=== PATIENT | male | born 1980 | race Caucasian/White ===

== ENCOUNTER 2017-01-22 20:44 | Emergency (ER) | payer SELFPAY ==
[~2017-01-22] VITALS: Ht 185.4 cm; Wt 89.0 kg
[2017-01-22 20:47] VITALS: BP 155/99; PULSE 97; RESP 15; TEMP 98.1; O2SAT 99
[2017-01-22 20:58] VITALS: BP 128/84; PULSE 93; RESP 18; O2SAT 99
[2017-01-22] MEDS ORDERED: KETOROLAC TROMETHAMINE 60 MG/2 ML (IM) VIAL IM ONE (21:00)
[2017-01-22] MEDS ORDERED: DEXAMETHASONE SOD PHOS 20 MG/5 ML VIAL IM ONE (21:00)
[2017-01-22] MEDS ORDERED: ORPHENADRINE INJ 60 MG/2 ML AMP IM ONE (21:00)
--- NOTE | 2017-01-22 21:22 | PD ---
HPI Chief Complaint: Back/ Neck Pain or Injury Time Seen by Provider: 20:57 Travel History International Travel<30 days: No Contact w/Intl Traveler<30days: No Traveled to known affect area: No History of Present Illness HPI Patient is a 36-year-old male presenting to emergency for evaluation of low back pain. Patient states he was moving heavy furniture all day, when he was finished he began to experience back pain that radiates across his lower back. Patient states the pain is an 8 out of 10, he reports it as tight and cramping. He denies any weakness in his lower extremities, no bladder or bowel incontinence, saddle paresthesia. Patient has not taken any medications to alleviate the pain. [facility] Past Medical History Medical History: Denies Significant Hx Tetanus Vaccination: > 5 Years Past Surgical History Surgical History: No Previous Surgery Social History Alcohol Use: No Tobacco Use: No Substance Use: No Allergies-Medications (Allergen,Severity, Reaction): Coded Allergies: No Known Allergies (Unverified , 01/22/17) Reported Meds & Prescriptions Reported Meds & Active Scripts Active No Active Prescriptions or Reported Medications Review of Systems Except as stated in HPI: all other systems reviewed are Neg Musculoskeletal: Positive: Myalgias, Cramping, Pain Neurologic: No: Weakness, Paresthesia, Incontinence, Sensory Disturbance Physical Exam Narrative GENERAL: Well-developed, well-nourished, alert male. Resting comfortably in no acute distress. SKIN: Warm and dry. HEAD: Atraumatic. Normocephalic. EYES: Pupils equal and round. No scleral icterus. No injection or drainage. ENT: No nasal bleeding or discharge. Mucous membranes pink and moist. NECK: Trachea midline. No JVD. CARDIOVASCULAR: Regular rate and rhythm. RESPIRATORY: No accessory muscle use. Clear to auscultation. Breath sounds equal bilaterally. GASTROINTESTINAL: Abdomen soft, non-tender, nondistended. Hepatic and splenic margins not palpable. MUSCULOSKELETAL: Extremities without clubbing, cyanosis, or edema. No obvious deformities. Tenderness to palpation paraspinal musculature and lumbar region bilaterally. No spinal tenderness or step-off noted. NEUROLOGICAL: Awake and alert. No obvious cranial nerve deficits. Motor grossly within normal limits. Five out of 5 muscle strength in the arms and legs. Normal speech. PSYCHIATRIC: Appropriate mood and affect; insight and judgment normal. Data Data Last Documented VS Vital Signs Date Time Temp Pulse Resp B/P (MAP) Pulse Ox O2 Delivery O2 Flow Rate FiO2 01/22/17 20:58 93 18 128/84 (99) 99 Room Air 01/22/17 20:47 98.1 Orders Orders Ketorolac Inj (Toradol Inj) (01/22/17 21:00) Orphenadrine Inj (Norflex Inj) (01/22/17 21:00) Dexamethasone Inj (Decadron Inj) (01/22/17 21:00) MDM Medical Decision Making Medical Screen Exam Complete: Yes Emergency Medical Condition: Yes Interpretation(s) Vital Signs Date Time Temp Pulse Resp B/P (MAP) Pulse Ox O2 Delivery O2 Flow Rate FiO2 01/22/17 20:58 93 18 128/84 (99) 99 Room Air 01/22/17 20:47 98.1 97 15 155/99 (117) 99 Room Air Differential Diagnosis Strain versus spasm versus discogenic pain versus other Narrative Course Patient is a 36-year-old male presenting to emergency Department with a few hours of low back pain after lifting heavy furniture. Patient is neurologically intact with no focal deficits noted on exam. Exam appears most consistent with muscle strain. Patient was given Norflex, dexamethasone and Toradol in the emergency department. Will reassess. Pain is improved mildly. Patient was requesting narcotic pain medication for the low back pain. Patient was encouraged to take the medications that he will be prescribed as directed and his pain will improve. He is encouraged to apply warm heat to affected area, continue gentle range of motion exercises, avoid exacerbating activities and avoid bed rest. He was encouraged follow-up with his primary doctor return to emergency department for any new or worsening symptoms. Patient verbalized understanding of instructions. Patient is stable for discharge. Diagnosis Primary Impression: Lumbar strain Qualified Codes: S39.012A - Strain of muscle, fascia and tendon of lower back , initial encounter Additional Impression: Spasm of lumbar paraspinous muscle Referrals: Primary Care Physician 1 week Patient Instructions: Acute Low Back Pain (ED), General Instructions, Muscle Spasm (ED), Muscle Strain (ED) Additional Instructions: Take medications as directed Apply warm heat to affected area, continue gentle range of motion exercises, avoid exacerbating activities, avoid bed rest Follow-up with your primary doctor Return to emergency department for any new or worsening symptoms Med/Other Pt SpecificInfo: Prescription(s) given Scripts Cyclobenzaprine (Flexeril) 10 Mg Tab 10 MG PO TID Y for MUSCLE SPASM, #30 TAB 0 Refills Prov: Jesika Valladares 01/22/17 Ibuprofen (Ibuprofen) 800 Mg Tab 800 MG PO Q6HR Y for PAIN, #40 TAB 0 Refills Prov: Jesika Valladares 01/22/17 Disposition: 01 DISCHARGE HOME Condition: Stable Jesika Valladares Jan 22, 2017 21:22
[2017-01-22] MEDS ORDERED: CYCL1TAB29 PO (21:55)
[2017-01-22] MEDS ORDERED: IBUP800T23 PO (21:55)
== END 2017-01-22 22:06 | disposition home or self-care (01) ==
LOC: NEPD 20:44
DX: S39.012A Strain of muscle, fascia and tendon of lower back, initial encounter (principal); M62.830 Muscle spasm of back; X50.9XXA Other and unspecified overexertion or strenuous movements or postures, initial encounter; Y93.89 Activity, other specified
CPT/HCPCS: 96372; 99284; J1100; J1885; J2360